=== PATIENT | male | born 1990 | race Caucasian/White ===

== ENCOUNTER → 2023-05-27 | Outpatient (CLI) | payer OTHER ==
--- NOTE | 2023-06-03 20:43 | MR ---
EXAMINATION TYPE: MR hip RT wo con DATE OF EXAM: 05/27/2023 COMPARISON: NONE HISTORY: 32-year-old male M25.551, Right hip pain TECHNIQUE: Multiplanar, multisequence images of the right hip were obtained without IV contrast. FINDINGS: History evidence for fracture or AVN. There are small superior and anterior femoral head neck junction osseous excrescences on both sides. No hip joint effusion. Slight irregularity within the glenoid labrum along the anterior superior quadrant, sagittal image 15 . No para labral cysts is identified. Articular cartilage appears maintained bilaterally. The bilateral rectus femoris and hamstrings origins as well as the iliopsoas and gluteal insertions a ppear intact. Sacrum and SI joints are intact. No abnormal fluid collection the pelvis. Prominent red marrow is present compatible with patient's age. Normal course, caliber, and signal intensity of the sciatic nerves. IMPRESSION: 1. Small anterior superior femoral head neck junction osseous excrescences on both sides. There may b e some degenerative signal within the acetabular labrum along the anterior superior quadrant. Correla te with physical exam testing for any symptoms of potential femoral acetabular impingement syndrome. 2. No other specific abnormality is seen.
== END | disposition home or self-care (01) ==
LOC: RADMRIMAIN 15:30
DX: M25.551 Pain in right hip (principal)

== ENCOUNTER → 2024-05-13 | Outpatient (CLI) | payer OTHER ==
--- NOTE | 2024-05-13 19:34 | MR ---
EXAMINATION TYPE: MR knee LT wo con DATE OF EXAM: 05/13/2024 COMPARISON: NONE HISTORY: Chronic left knee pain with locking and swelling, hx injuries and ACL repair. TECHNIQUE: Multiplanar, multisequence images of the knee is performed without IV contrast. FINDINGS: MEDIAL MENISCUS:. Irregular and oblique signal posterior horn extends to inferior articular surface. LATERAL MENISCUS: Anterior and posterior horns are intact without tear. CRUCIATE LIGAMENTS: The posterior cruciate ligament is intact and unremarkable. Susceptibility artifa ct from prior surgical change to the anterior cruciate ligament. Surgically repaired anterior cruciat e ligament is grossly intact. COLLATERAL LIGAMENTS: The medial collateral ligament and lateral collateral ligament complex are inta ct and unremarkable. EXTENSOR MECHANISM: Visualized quadriceps and patellar tendons are intact. EFFUSION: Small to moderate size suprapatellar joint effusion. POPLITEAL CYST: No popliteal/christensen cyst. TRICOMPARTMENT SPACES: Mild tricompartment joint space loss with minimal spurring. CARTILAGE: Tricompartmental articular cartilage is preserved. BONE MARROW SIGNAL: Heterogeneous increased T2 signal anterior medial proximal tibia adjacent to the surgical change. OTHER: No additional significant abnormality is appreciated. IMPRESSION: 1. Surgically repaired anterior cruciate ligament remains intact. 2. Suspect full thickness tear posterior horn of medial meniscus. 3. Focal abnormal bone marrow edema anterior medial aspect of the proximal tibia adjacent to the tibi al portion of ACL surgical change. 4. Small to moderate-size suprapatellar joint effusion. [facility], , 05/13/2024 7:32 PM
== END | disposition home or self-care (01) ==
LOC: RADMRIMAIN 09:47
PROVIDERS: ATTEND Family Medicine
DX: M25.462 Effusion, left knee (principal); R60.9 Edema, unspecified; Z98.890 Other specified postprocedural states

== ENCOUNTER → 2024-06-26 | Outpatient (CLI) | payer OTHER ==
[2024-06-26 15:31] LABS: Anion Gap 10.3 mmol/L (4.00-12.00); Carbon Dioxide 27.7 mmol/L (21.6-31.8); Potassium 4.2 mmol/L (3.5-5.5)
[2024-06-26 16:51] LABS: Basophils # (A) 0.05 X 10*3/uL (0.00-0.10); Eosinophils # (A) 0.43 X 10*3/uL (0.04-0.35); Eosinophils % (A) 8.2 %; HCT 46.3 % (39.6-50.0); HGB 16.5 g/dL (13.0-17.0); Lymphocytes # (A) 2.23 X 10*3/uL (0.90-5.00); Lymphocytes % (A) 42.6 %; MCH 31.7 pg (27.0-32.0); MCHC 35.6 g/dL (32.0-37.0); Mean Platelet Volume 10.4 FL (9.5-12.2); Monocytes # (A) 0.41 X 10*3/uL (0.20-1.00); Monocytes % (A) 7.8 %; NRBC Per 100 WBC 0 X 10*3/uL (0.00-0.01); Platelet Count 313 X 10*3/uL (140-440); RDW 11.9 % (11.5-14.5); WBC 5.24 X 10*3/uL (4.50-10.00)
== END | disposition home or self-care (01) ==
LOC: LABPAT 09:55
PROVIDERS: ATTEND Orthopaedic Surgery
DX: Z01.812 Encounter for preprocedural laboratory examination (principal); M23.92 Unspecified internal derangement of left knee
CPT/HCPCS: 80051; 85025

== ENCOUNTER 2024-08-06 10:34 | Day surgery (SDC) | payer OTHER ==
[2024-08-03 15:53] VITALS: BMI 32.1
--- NOTE | 2024-08-05 20:29 | HP ---
HISTORY AND PHYSICAL DATE OF SURGERY: 08/06/2024. HISTORY OF PRESENT ILLNESS: Robbie Alejandro is a 33-year-old gentleman, seen with progressive left knee pain. We discussed options regarding treatment. He elected to proceed with left knee arthroscopy. Consent regarding procedure was obtained. PAST SURGICAL HISTORY: Left knee arthroscopy, wrist surgery. DAILY MEDICATIONS: None. ALLERGIES: None reported. SOCIAL HISTORY: Denies tobacco use. PHYSICAL EVALUATION OF THE LEFT KNEE: His range of motion is 0 to 130 degrees. There is a [id number] effusion. Tenderness in the medial joint line. Positive medial Prashanth's. Ligaments stable. Hip rotation is without pain. Distal neurovascular exam is intact. Left knee radiographs revealed endo buttons consistent with the previous ACL reconstruction. MRI of the left knee revealed medial meniscal tear and stable ACL reconstruction with an intra-articular effusion present. IMPRESSION: 1. Internal derangement of left knee with medial meniscal tear. 2. History of left knee anterior cruciate ligament reconstruction. PLAN: Left knee arthroscopy with partial medial meniscectomy and debridement. MMODL / IJN: [id number] /
[~2024-08-06 10:34] MED LIST: LIDOCAINE 1% (10MG/ML) FOR IV START INTRADERMA PRN; fentaNYL (PF) 50 MCG/ML 2 ML AMP IVP PRN
[2024-08-06] MEDS: IV FLUID CONTINUATION 1,000 ML IV ONE (11:27)
[2024-08-06] MEDS: MIDAZOLAM 2 MG/2 ML VIAL IV PRN (11:32)
[2024-08-06] MEDS: DEXAMETHASONE SOD PHOSPHATE 4 MG/ML 1 ML VIAL IV ONE (11:33)
[2024-08-06] MEDS: LACTATED RINGERS 1,000 ML IV SCH (11:33)
[2024-08-06] MEDS: ONDANSETRON 4 MG/2 ML VIAL IVP ONE (11:33)
[2024-08-06] MEDS: SCOPOLAMINE 1 MG/72 HR PATCH TRANSDERM STA (11:34)
[2024-08-06] MEDS ORDERED: PROPOFOL 10 MG/ML 20 ML VIAL IV ONE (11:42)
[2024-08-06] MEDS ORDERED: fentaNYL (PF) 50 MCG/ML 2 ML AMP ONE (11:42)
[2024-08-06] MEDS ORDERED: LIDOCAINE 1% INJ 10MG/ML (20 ML MDV) ONE (11:42)
[2024-08-06] MEDS ORDERED: MIDAZOLAM 2 MG/2 ML VIAL ONE (11:42)
[2024-08-06] MEDS ORDERED: GLYCOPYRROLATE 0.2 MG/ML 2 ML VIAL ONE (11:42)
[2024-08-06] MEDS: BUPIVACAINE (PF) 0.25% 30 ML VIAL SQ ONE (12:16)
[2024-08-06 12:57] VITALS: TEMP 96.8
--- NOTE | 2024-08-06 12:57 | P.OP ---
Date of Procedure: 08/06/24 Preoperative Diagnosis: Internal derangement left knee Postoperative Diagnosis: 1. Tear medial and lateral meniscus left knee 2. Grade IV chondromalacia medial femoral condyle left knee 3. Reactive synovitis medial, lateral and suprapatellar compartments left knee Procedure(s) Performed: 1. Arthroscopic partial medial and lateral meniscectomy left knee 2. Arthroscopic microfracture medial femoral condyle left knee 3. Arthroscopic partial synovectomy medial, lateral and suprapatellar compartments left knee Anesthesia: GETA, local Surgeon: Ismael Enriquez Estimated Blood Loss (ml): 7 Pathology: none sent Condition: stable Disposition: PACU Indications for Procedure: 33-year-old patient seen with progressive left knee pain. After having treatment options discussed, he elected to proceed with arthroscopy. Operative Findings: See description of procedure Description of Procedure: Patient was taken to the operative suite. Patient underwent a general anesthetic by the department of anesthesia. Patient was given preoperative antibiotics. The left lower extremity was placed in a well-padded arthroscopic leg gomez. The left leg was prepped and draped in the normal sterile orthopedic fashion. A lateral parapatellar and suprapatellar incision was made. Trochars were inserted. Arthroscopy was initiated. Suprapatellar pouch revealed diffuse thick reactive synovitis. The patellofemoral joint appeared to articulate congruently. There was grade I chondromalacia patellofemoral joint without any significant osteochondral tears. The scope was guided into the medial gutter. No loose bodies or plica were identified the scope was then guided into the medial compartment. A medial parapatellar incision was made. Trocar inserted followed by probe. There was evidence for a previous attempted meniscal repair with recurrent bucket-handle tear. The tear was a white on white zone tear. There was 1 area of grade IV chondromalacia involving the medial femoral condyle weightbearing surface measuring less than a centimeter. There was rather thick reactive synovitis anteriorly. At this point I introduced various hand basket instruments and performed a partial medial meniscectomy getting down to stable meniscal tissue.. I did note a meniscal repair implant that I was able to remove without difficulty. I reduced a motorized shaver and debrided out the piecemeal fragments of meniscus and contou red the remaining meniscus getting down to stable tissue. I performed a partial synovectomy decompressing the reactive synovitis. I introduced a microfracture awl and I performed a microfracture to that area of exposed bone medial femoral condyle penetrating the bone with resultant bleeding at the microfracture site. The residual meniscus was now probed and was found to be stable. That osteoch ondral surface about the medial femoral condyle was stable. There was good decompression of the synovitis. Scope and probe were then guided into the intercondylar notch. There was no evidence for an ACL graft that appeared stable. There was a +1 Lainey and +1 drawer intraoperatively with good endpoints felt and good overall stability of the ACL graft. The scope and probe were then guided into lateral compartment. There was a tear involving the mid body of the lateral meniscus. There was no chondromalacia in the lateral compartment. There was some thick reactive synovitis. I performed a partial lateral meniscectomy getting down to stable meniscal tissue. I performed a partial synovectomy decompressing the reactive synovitis. The residual meniscus was stable. There was good decompression of the synovitis. The scope was in guided back into the suprapatellar compartment. I introduced a motorized shaver into the suprapatellar compartment. I debrided some piecemeal fragments of meniscus that I encountered. I performed a partial synovectomy. The shaver was removed. There was good decompression of the synovitis. I now took 1 more look around the entire knee, no residual debris. Instruments were now removed from the joint. The joint was infiltrated with .25% Marcaine. Steri-Strips were applied to the portal sites. Sterile dressings were applied. The patient was placed into a PAULO hose. No tourniquet was utilized. The patient was awakened, transferred to a bed and taken to recovery stable satisfactory condition.
[2024-08-06 13:23] VITALS: RESP 16
[2024-08-06] MEDS: HYDROmorphone 0.5 MG/0.5 ML SYRINGE IVP PRN (13:33)
[2024-08-06 14:31] VITALS: BP 136/89; PULSE 75
== END 2024-08-06 14:48 | disposition home or self-care (01) ==
LOC: OR 10:34
PROVIDERS: ATTEND Orthopaedic Surgery
DX: S83.212A Bucket-handle tear of medial meniscus, current injury, left knee, initial encounter (principal); S83.282A Other tear of lateral meniscus, current injury, left knee, initial encounter; M94.262 Chondromalacia, left knee; M65.862 Other synovitis and tenosynovitis, left lower leg; F41.9 Anxiety disorder, unspecified; F17.200 Nicotine dependence, unspecified, uncomplicated; Z79.899 Other long term (current) drug therapy; Z98.890 Other specified postprocedural states; X58.XXXA Exposure to other specified factors, initial encounter
CPT/HCPCS: 29880; 29879; 29876; J2250; J1100; J2405; J1171; J0665